=== PATIENT | female | born 1945 | race Caucasian/White ===

== ENCOUNTER 2016-06-16 10:35 | Observation (INO) ==
[2016-06-16] MEDS ORDERED: Aspirin 325 MG TABLET PO ONE (10:53)
--- NOTE | 2016-06-16 10:54 | Emergency Department Note ---
Disposition Clinical Impression: Chest pain, HTN (hypertension), HLD (hyperlipidemia), Diabetes, Frail elderly, Obesity, CAD (coronary artery disease), Renal insufficiency, UTI (urinary tract infection), Leukocytosis, Lactic acidosis, Abnormal EKG, Cerebrovascular disease , TIA (transient ischemic attack) Disposition: Admitted As Inpatient Referrals: NO,PCP [Non-Partnered Physician] - Forms: ED Satisfaction Letter General Adult HPI - General Chief complaint: ED Shortness of Breath/Dyspnea Stated complaint: SOB Time Seen by Provider: 06/16/16 10:43 Source: patient, family Limitations: no limitations - History of Present Illness HPI Narrative: 70-year-old female with a history of diabetes, hypertension, and hypercholesterolemia status post recent temporal artery biopsy reports to the emergency department complaining of chest pain and shortness of breath. The patient reports exertional chest pressure and dyspnea which began last evening. The pain did not radiate into the jaws or left arm she felt a heavy sensation in her chest. The patient has had no cough or runny nose or pain or sore throat , coughing up blood leg swelling or pain or syncope. No history of DVT PE or cancer. She had remote cardiac testing which revealed no stentable lesions, the patient does have a history of coronary artery disease per the chart. That cardiac testing was reported to be several years ago. The patient is not anticoagulated currently. The patient also reports last evening her right hand and right foot "adelfo up" indicating weakness which resolved. The patient has no trouble moving the arms or legs currently no weakness or numbness in arms or legs currently there is no history of difficulty speaking hearing or acute headache. No history of fever. There is no history of abdominal pain vomiting or diarrhea. No falls or injuries. Her main concern is chest pain and shortness of breath. Secondary concerns were brought forward by her sister regarding her hand and foot, the patient does corroborate that history however. There is been no coldness or blueness in the arms or legs. Pain Scale: 0 - Related Data Home Medications Medication Instructions Recorded Confirmed Amlodipine [Norvasc] 10 mg PO DAILY 05/18/15 06/06/16 Ascorbic Acid [Vitamin C] 1,000 mg PO DAILY 05/18/15 06/06/16 Enalapril Maleate [Vasotec] 40 mg PO DAILY 05/18/15 06/06/16 Gabapentin [Neurontin] 800 mg PO TID 05/18/15 06/06/16 Liraglutide [Victoza 2-Jere] 0.6 mg SQ DAILY 05/18/15 06/06/16 Metoprolol [Lopressor] 100 mg PO BID 05/18/15 06/06/16 Simvastatin [Zocor] 40 mg PO DAILY 05/18/15 06/06/16 Albuterol Neb [Proventil Neb] 2.5 mg IH TID PRN 06/06/16 06/06/16 Albuterol Sulfate [Albuterol 2 puff IH Q6HR PRN 06/06/16 06/06/16 Inhaler] Calcium Carbonate [Tums] 1,000 mg PO Q4HR PRN 06/06/16 06/06/16 Cholecalciferol (D-3) [Vitamin D] 2,000 unit PO DAILY 06/06/16 06/06/16 Cyanocobalamin (Vitamin B-12) 1,000 mcg PO DAILY 06/06/16 06/06/16 [Vitamin B12] Cyclobenzaprine [Flexeril] 10 mg PO HS PRN 06/06/16 06/06/16 Ferrous Sulfate [Iron] 325 mg PO DAILY 06/06/16 06/06/16 Hydrochlorothiazide 25 mg PO DAILY 06/06/16 06/06/16 Krill/Om3/Dha/Epa/Om6/Lip/Astx 1,500 mg PO DAILY 06/06/16 06/06/16 [Krill Oil 1,500 mg Softgel] Metformin [Glucophage] 500 mg PO DAILY 06/06/16 06/06/16 Montelukast [Singulair] 10 mg PO DAILY 06/06/16 06/06/16 Multivitamin [One Daily Essential] 1 tab PO DAILY 06/06/16 06/06/16 PredniSONE 20 mg PO DAILY 06/06/16 06/06/16 Trazodone HCl 100 mg PO HS 06/06/16 06/06/16 Allergies Allergy/AdvReac Type Severity Reaction Status Date / Time No Known Allergies Allergy Verified 03/23/16 10:46 All systems ED: reviewed and negative except as stated. Past Medical History - Past Medical History Medical history: Reports: arthritis, coronary artery disease, diabetes, hyperlipidemia, hypertension Surgical history: Reports: appendectomy, hysterectomy Psychiatric history: Reports: depression - Social History Smoking Status: Former smoker Smokeless Tobacco Status: No Alcohol use: Reports: none Drug use: Reports: none Physical Exam - General Limitations: no limitations General appearance: alert, in no apparent distress - Head Head exam: atraumatic, normocephalic, normal inspection - Eye Eye exam: Present: normal appearance, PERRL, EOMI - ENT ENT exam: normal exam, normal oropharynx, mucous membranes moist, TM's normal bilaterally, normal external ear exam - Neck Neck exam: Present: normal inspection, full ROM, trachea midline. Absent: meningismus - Chest Chest inspection: Present: symmetric chest wall rise. Absent: tenderness - Respiratory Respiratory exam: Present: normal lung sounds bilaterally. Absent: respiratory distress - Cardiovascular Cardiovascular exam: Present: regular rate, normal rhythm, normal heart sounds - Abdominal Exam Abdominal exam: Present: soft, Non-Tender, normal bowel sounds. Absent: tenderness, distention, guarding, rebound, rigidity, pulsatile mass - Extremities Exam Extremities exam: Present: normal inspection, full ROM, normal capillary refill. Absent: tenderness, pedal edema, joint swelling, calf tenderness - Expanded Lower Extremity Exam Lower leg exam: Absent: Homans' sign Neurovascular/Tendon exam: Present: normal capillary refill. Absent: pulse deficit, motor deficit, sensory deficit, tendon deficit, extremity cold to touch , pallor - Back Exam Back exam: Present: normal inspection, full ROM. Absent: tenderness, CVA tenderness (R), vertebral tenderness - Neurological Exam Neurological exam: Present: alert, oriented X3, CN II-XII intact. Absent: motor sensory deficit - Psychiatric Psychiatric exam: Present: normal affect, normal mood - Skin Skin exam: Present: warm, dry, intact, normal color. Absent: rash, cyanosis, diaphoresis, erythema, pallor, mottled Course Vital Signs Temperature 97.8 F 06/16/16 10:37 Pulse Rate 75 06/16/16 10:37 Respiratory Rate 18 06/16/16 10:37 Blood Pressure 145/83 06/16/16 10:37 O2 Sat by Pulse Oximetry 99 06/16/16 10:37 Temperature 97.8 F 06/16/16 10:37 Pulse Rate 71 06/16/16 12:52 Respiratory Rate 18 06/16/16 12:52 Blood Pressure 141/78 06/16/16 12:52 O2 Sat by Pulse Oximetry 96 06/16/16 12:52 Oxygen Delivery Oxygen Delivery Room Air Medical Decision Making - [facility] Narrative Medical decision making narrative: The patient is elderly, she has a history of hypertension, diabetes, and hypercholesterolemia and is experiencing exertional chest pain and dyspnea. A stye in her risk factors for acute coronary syndrome, vertebral vascular disease , associated UTI, apparently lactic acidosis and leukocytosis, and what sounds like transient neurologic symptoms on the right side, I thought it would be appropriate to admit the patient to hospital. The patient is not tachycardic or febrile. She does not meet sepsis criteria directly. Her lactic acidosis may be secondary to her diabetic medications. IV fluids and antibiotics were given. I discussed the case with the hospitalist on-call who has accepted the patient to their care. - Lab Data Lab results reviewed: Yes I reviewed the patient's lab results. Result diagrams: 06/16/16 11:01 06/16/16 11:01 Lab Results 06/16/16 06/16/16 06/16/16 Range/Units 11:01 11:01 11:01 WBC 19.3 H (4.3-11.1) K/mcL RBC 4.16 (3.82-4.97) M/mcL Hgb 12.3 (11.5-15.4) g/dL Hct 37.3 (35.3-44.9) % MCV 89.7 (83.0-100.0) fL MCH 29.6 (28.0-33.3) pg MCHC 33.0 (31.6-35.5) g/dL RDW 13.2 (11.5-14.5) % Plt Count 182 (140-400) K/mcL MPV 10.7 (9.4-12.4) fL Immature Gran % 0.8 (0-4) % Seg Neutrophils % 70.5 % Lymphocytes % 22.7 % Monocytes % 5.3 % Eosinophils % 0.5 % Basophils % 0.2 % Neutrophils # 13.6 H (1.6-8.9) K/mcL Lymphocytes # 4.4 (0.6-4.6) K/mcL Monocytes # 1.0 (0.0-1.3) K/mcL Eosinophils # 0.1 (0.0-0.6) K/mcL Basophils # 0.0 (0.0-0.2) K/mcL PT 10.9 (9.4-12.1) Seconds INR 1.0 APTT 20.5 L (26.0-36.0) Seconds Sodium 137 (136-145) mEq/L Potassium 4.2 (3.5-4.5) mEq/L Chloride 105 (98-109) mEq/L Carbon Dioxide 23 (19-29) mEq/L BUN 32 H (7-20) mg/dL Creatinine 1.19 H (0.57-1.11) mg/dL Est GFR ( Amer) 54 L (> 60) Est GFR (Non-Af Amer) 45 L (> 60) BUN/Creatinine Ratio 27 H (6-26) Glucose 243 H (70-99) mg/dL Calculated Osmolality 299 (280-300) Lactic Acid (0.5-2.2) mmol/L Calcium 9.3 (8.6-10.8) mg/dL Total Bilirubin 0.5 (0.2-1.2) mg/dL Direct Bilirubin 0.1 (0.0-0.5) mg/dL Indirect Bilirubin 0.4 (0.0-1.2) mg/dL AST 12 (5-34) Units/L ALT 21 (0-55) Units/L Alkaline Phosphatase 80 (38-126) Units/L Creatine Kinase 28 L (29-168) Units/L Troponin I (0-0.03) ng/mL C-Reactive Protein 0 (Less than 5) mg/L B-Natriuretic Peptide (0-100) pg/mL Serum Total Protein 6.7 (6.0-8.3) g/dL Albumin 3.3 L (3.5-5.0) g/dL Globulin 3.4 (2.4-3.5) g/dL Albumin/Globulin Ratio 1.0 L (1.1-2.2) Urine Color (Yellow) Urine Clarity (Clear) Urine pH (5.0-8.0) pH Units Ur Specific [place] (1.010-1.025) Urine Protein (Neg-Trace) mg/dL Urine Glucose (UA) (Normal) mg/dL Urine Ketones (Negative) mg/dL Urine Blood (Negative) Urine Nitrite (Negative) Urine Bilirubin (Negative) Urine Urobilinogen (Normal) mg/dL Ur Leukocyte Esterase (Negative) Urine Microscopic RBC (0-3) per hpf Urine Microscopic WBC (0-3) per hpf Ur Squamous Epith Cells (None-Few) per lpf Urine Bacteria (None-Few) per hpf Hyaline Casts (None-Few) per lpf Ur Culture Indicated? (NO) 06/16/16 06/16/16 06/16/16 Range/Units 11:01 11:01 11:01 WBC (4.3-11.1) K/mcL RBC (3.82-4.97) M/mcL Hgb (11.5-15.4) g/dL Hct (35.3-44.9) % MCV (83.0-100.0) fL MCH (28.0-33.3) pg MCHC (31.6-35.5) g/dL RDW (11.5-14.5) % Plt Count (140-400) K/mcL MPV (9.4-12.4) fL Immature Gran % (0-4) % Seg Neutrophils % % Lymphocytes % % Monocytes % % Eosinophils % % Basophils % % Neutrophils # (1.6-8.9) K/mcL Lymphocytes # (0.6-4.6) K/mcL Monocytes # (0.0-1.3) K/mcL Eosinophils # (0.0-0.6) K/mcL Basophils # (0.0-0.2) K/mcL PT (9.4-12.1) Seconds INR APTT (26.0-36.0) Seconds Sodium (136-145) mEq/L Potassium (3.5-4.5) mEq/L Chloride (98-109) mEq/L Carbon Dioxide (19-29) mEq/L BUN (7-20) mg/dL Creatinine (0.57-1.11) mg/dL Est GFR ( Amer) (> 60) Est GFR (Non-Af Amer) (> 60) BUN/Creatinine Ratio (6-26) Glucose (70-99) mg/dL Calculated Osmolality (280-300) Lactic Acid 2.7 H (0.5-2.2) mmol/L Calcium (8.6-10.8) mg/dL Total Bilirubin (0.2-1.2) mg/dL Direct Bilirubin (0.0-0.5) mg/dL Indirect Bilirubin (0.0-1.2) mg/dL AST (5-34) Units/L ALT (0-55) Units/L Alkaline Phosphatase (38-126) Units/L Creatine Kinase (29-168) Units/L Troponin I 0.03 (0-0.03) ng/mL C-Reactive Protein (Less than 5) mg/L B-Natriuretic Peptide 294 H (0-100) pg/mL Serum Total Protein (6.0-8.3) g/dL Albumin (3.5-5.0) g/dL Globulin (2.4-3.5) g/dL Albumin/Globulin Ratio (1.1-2.2) Urine Color (Yellow) Urine Clarity (Clear) Urine pH (5.0-8.0) pH Units Ur Specific [place] (1.010-1.025) Urine Protein (Neg-Trace) mg/dL Urine Glucose (UA) (Normal) mg/dL Urine Ketones (Negative) mg/dL Urine Blood (Negative) Urine Nitrite (Negative) Urine Bilirubin (Negative) Urine Urobilinogen (Normal) mg/dL Ur Leukocyte Esterase (Negative) Urine Microscopic RBC (0-3) per hpf Urine Microscopic WBC (0-3) per hpf Ur Squamous Epith Cells (None-Few) per lpf Urine Bacteria (None-Few) per hpf Hyaline Casts (None-Few) per lpf Ur Culture Indicated? (NO) 06/16/16 Range/Units 12:28 WBC (4.3-11.1) K/mcL RBC (3.82-4.97) M/mcL Hgb (11.5-15.4) g/dL Hct (35.3-44.9) % MCV (83.0-100.0) fL MCH (28.0-33.3) pg MCHC (31.6-35.5) g/dL RDW (11.5-14.5) % Plt Count (140-400) K/mcL MPV (9.4-12.4) fL Immature Gran % (0-4) % Seg Neutrophils % % Lymphocytes % % Monocytes % % Eosinophils % % Basophils % % Neutrophils # (1.6-8.9) K/mcL Lymphocytes # (0.6-4.6) K/mcL Monocytes # (0.0-1.3) K/mcL Eosinophils # (0.0-0.6) K/mcL Basophils # (0.0-0.2) K/mcL PT (9.4-12.1) Seconds INR APTT (26.0-36.0) Seconds Sodium (136-145) mEq/L Potassium (3.5-4.5) mEq/L Chloride (98-109) mEq/L Carbon Dioxide (19-29) mEq/L BUN (7-20) mg/dL Creatinine (0.57-1.11) mg/dL Est GFR ( Amer) (> 60) Est GFR (Non-Af Amer) (> 60) BUN/Creatinine Ratio (6-26) Glucose (70-99) mg/dL Calculated Osmolality (280-300) Lactic Acid (0.5-2.2) mmol/L Calcium (8.6-10.8) mg/dL Total Bilirubin (0.2-1.2) mg/dL Direct Bilirubin (0.0-0.5) mg/dL Indirect Bilirubin (0.0-1.2) mg/dL AST (5-34) Units/L ALT (0-55) Units/L Alkaline Phosphatase (38-126) Units/L Creatine Kinase (29-168) Units/L Troponin I (0-0.03) ng/mL C-Reactive Protein (Less than 5) mg/L B-Natriuretic Peptide (0-100) pg/mL Serum Total Protein (6.0-8.3) g/dL Albumin (3.5-5.0) g/dL Globulin (2.4-3.5) g/dL Albumin/Globulin Ratio (1.1-2.2) Urine Color Yellow (Yellow) Urine Clarity Clear (Clear) Urine pH 5.5 (5.0-8.0) pH Units Ur Specific [place] 1.018 (1.010-1.025) Urine Protein Negative (Neg-Trace) mg/dL Urine Glucose (UA) Normal (Normal) mg/dL Urine Ketones Negative (Negative) mg/dL Urine Blood Negative (Negative) Urine Nitrite Negative (Negative) Urine Bilirubin Negative (Negative) Urine Urobilinogen Normal (Normal) mg/dL Ur Leukocyte Esterase Moderate H (Negative) Urine Microscopic RBC 0-3 (0-3) per hpf Urine Microscopic WBC 15-30 H (0-3) per hpf Ur Squamous Epith Cells Many H (None-Few) per lpf Urine Bacteria None Seen (None-Few) per hpf Hyaline Casts None Seen (None-Few) per lpf Ur Culture Indicated? YES A (NO) - Radiology Data Radiology results reviewed: Yes I reviewed the patient's radiology results.
[2016-06-16 11:09] LABS: Basophils % 0.2 %; Eosinophils # 0.1 K/mcL (0.0-0.6); Eosinophils % 0.5 %; Hematocrit 37.3 % (35.3-44.9); Hemoglobin 12.3 g/dL (11.5-15.4); Immature Granulocytes % 0.8 % (0-4); Lymphocytes # 4.4 K/mcL (0.6-4.6); Lymphocytes % 22.7 %; Mean Corpuscular Hemoglobin 29.6 pg (28.0-33.3); Mean Corpuscular Volume 89.7 fL (83.0-100.0); Mean Platelet Volume 10.7 fL (9.4-12.4); Monocytes % 5.3 %; Neutrophils # 13.6 K/mcL (1.6-8.9); Platelet Count 182 K/mcL (140-400); Red Blood Count 4.16 M/mcL (3.82-4.97); Red Cell Distribution Width 13.2 % (11.5-14.5); Segmented Neutrophils % 70.5 %
[2016-06-16 11:14] LABS: Prothrombin Time 10.9 Seconds (9.4-12.1)
[2016-06-16 11:17] LABS: Activated Partial Thrombo Time 20.5 Seconds (26.0-36.0)
[2016-06-16 11:23] LABS: Albumin 3.3 g/dL (3.5-5.0); Bilirubin,Direct 0.1 mg/dL (0.0-0.5); Bilirubin,Indirect 0.4 mg/dL (0.0-1.2); Bilirubin,Total 0.5 mg/dL (0.2-1.2); Calcium 9.3 mg/dL (8.6-10.8); Globulin 3.4 g/dL (2.4-3.5); Potassium 4.2 mEq/L (3.5-4.5); Total Protein 6.7 g/dL (6.0-8.3)
[2016-06-16 12:50] LABS: Bilirubin,Urine Negative (Negative); Blood,Urine Negative (Negative); Clarity,Urine Clear (Clear); Color,Urine Yellow (Yellow); Glucose,Urine (UA) Normal (Normal); Ketones,Urine Negative (Negative); Leukocyte Esterase,Urine Moderate (Negative); Nitrite,Urine Negative (Negative); PH,Urine 5.5 pH Units (5.0-8.0); Protein,Urine Negative (Neg-Trace); Specific Gravity,Urine 1.018 (1.010-1.025); Urobilinogen,Urine Normal (Normal)
[2016-06-16] MEDS ORDERED: 0.9 % Sodium Chloride 1,000 ML IVC ONE (12:50)
[2016-06-16 12:52] LABS: Bacteria,Urine None Seen per hpf (None-Few); Hyaline Casts,Urine None Seen per lpf (None-Few); RBC,Urine 0-3 per hpf (0-3); Squamous Epithelial Cell,Urine Many per lpf (None-Few); WBC,Urine 15-30 per hpf (0-3)
[2016-06-16] MEDS ORDERED: Acetaminophen 325 MG TABLET PO PRN (15:23)
[2016-06-16] MEDS ORDERED: Naloxone 0.4 MG/ML INJ IVP PRN (15:23)
[2016-06-16] MEDS ORDERED: D5% in Water 1,000 ML IVC PRN (15:27)
[2016-06-16] MEDS ORDERED: *HR* Dextrose 50 % in Water (Syg) 50 ML SYRINGE IVP PRN (15:27)
[2016-06-16] MEDS ORDERED: Dextrose Gel 15 GM PO PRN ×2 (15:27)
[2016-06-16] MEDS: 0.9 % Sodium Chloride 1,000 ML IVC SCH (16:31)
--- NOTE | 2016-06-16 16:33 | Internal Med History&Physical ---
Date of Encounter: 06/16/16 Time of Encounter: 15:30 Assessment and Plan (1) Chest pain Current visit: Yes Status: Acute 1 patient is experiencing chest pain with associated shortness of breath. Risk factors include hypertension diabetes and obesity family history. First troponin was negative we will continue to cycle cardiac troponins 2 continue his cardiac monitoring EKG as needed 3 we will obtain cardiac echo 4 nitroglycerin as needed for chest pain, oxygen as needed to maintain SPO2 greater than 92% 5 we will make patient nothing by mouth hold beta niko for now-cardiac stress in a.m. 6 continue aspirin and statin beta niko Qualifiers: Chest pain type: unspecified Qualified Code(s): R07.9 - Chest pain, unspecified (2) CKD (chronic kidney disease), stage III Current visit: Yes Status: Acute 1 creatinine is 1.19-it has been 1.3-1.6. We will continue to monitor creatinine 2 avoid nephrotoxins 3 daily weights and monitor intake and output 4 IV fluids (3) HTN (hypertension) Current visit: Yes Status: Acute 1 we will continue with Norvasc and Lopressor dose to maintain systolic less than 140 Qualifiers: Hypertension type: essential hypertension Qualified Code(s): I10 - Essential (primary) hypertension (4) Diabetes Current visit: Yes Status: Acute 1 patient is taking metformin. As noted patient's lactate is elevated. We will discontinue metformin for now give IV fluids. We will check blood sugars before meals at bedtime and exercise guidelines as needed. 2 due to elevation of lactate and patient's CK D-therefore we stopped and will need to be discharged on different oral antidiabetic 3 diabetic diet Qualifiers: Diabetes mellitus type: type 2 Diabetes mellitus complication status: without complication Diabetes mellitus usp insulin use: with usp use Qualified Code(s): E11.9 - Type 2 diabetes mellitus without complications ; Z79.4 - retirement (current) use of insulin (5) CAD (coronary artery disease) Current visit: Yes Status: Acute 1 patient states she did have a stress test approximately 10 years ago which revealed no stainable lesions. We will continue with statin beta niko will give aspirin. 2 nitroglycerin as needed oxygen as needed for chest pain Qualifiers: Coronary Disease-Associated Artery/Lesion type: unspecified vessel or lesion type [place] vs. transplanted heart: [place] heart Associated angina: angina presence unspecified Qualified Code(s): I25.10 - Atherosclerotic heart disease of [place] coronary artery without angina pectoris (6) Lactic acidosis Current visit: Yes Status: Acute 1 patient has a lactate of 2.7. Patient is on metformin and has chronic kidney disease. We will start the metformin. Give IV fluids recheck lactate. (7) DVT prophylaxis Current visit: Yes Status: Acute 1 FRANCISCO bach Internal Medicine - H&P: HPI Chief complaint: cp Admitted From: Emergency Dept Plans for Post Hospital Care: Home History of present illness: Ms. Tucker is a 70 year old female past medical history diabetes hypertension CK D stage III hypercholesterolemia recent temporal artery biopsy 06/06/2016. According to patient she had taken a walk yesterday evening she came home and felt unusually tired and rested. After she had restedshe began to experience midsternal sharp achy9/10 pressure which was nonradiating. The pain was constant, she did experience palpitations. There were no aggravating factors. She did experience shortness of breath however no lightheadedness diaphoresis beers chills cough nausea vomiting or diarrhea. She also noted that her right hand and right foot began to draw up and felt weak and resolved after a few minutes. The chest pressure continued all night into this morning. The pain was relieved when she had taken an albuterol treatment She presented to the ER with the above complaints. According to ER records first cardiac troponin was negative EKG with no ST-T wave abnormalities. Chest x-ray with no acute process. Lab work did reveal an elevated lactate 2.7 creatinine is 1.19 white count 19.3 urinalysis today revealed moderate amount of leuk esterase. Blood cultures were obtained patient was given IV fluids and aspirin. Initiated on IV Rocephin. She was admitted for further work up evaluation. Presently patient denies any chest pain or shortness of breath. She has equal strength in all extremities and is able to move the family difficulty. Cranial nerves II through XII are intact facial noted. She is alert and oriented appropriate following simple commands. Presently she is hemodynamically stable. I did review this case with who agrees with plan. Past Med Surg Social Fam HX - Past Medical History Medical history: arthritis, coronary artery disease, diabetes, hyperlipidemia, hypertension Psychiatric history: depression - Past Surgical History Surgical History: appendectomy, hysterectomy - Social History Smoking Status: Former smoker Smokeless Tobacco Status: No Alcohol use: none Drug use: none - Family History Father Living Status: Hx Family Cardiac Disorders: Yes Brother Living Status: Still Living Hx Family Cardiac Disorders: Yes Internal Medicine - H&P: Meds Amlodipine [Norvasc] 10 mg PO DAILY 05/18/15 [History] Ascorbic Acid [Vitamin C] 1,000 mg PO DAILY 05/18/15 [History] Enalapril Maleate [Vasotec] 40 mg PO DAILY 05/18/15 [History] Gabapentin [Neurontin] 800 mg PO TID 05/18/15 [History] Liraglutide [Victoza 2-Jere] 0.6 mg SQ DAILY 05/18/15 [History] Metoprolol [Lopressor] 100 mg PO BID 05/18/15 [History] Simvastatin [Zocor] 40 mg PO DAILY 05/18/15 [History] Albuterol Neb [Proventil Neb] 2.5 mg IH TID PRN 06/06/16 [History] Albuterol Sulfate [Albuterol Inhaler] 2 puff IH Q6HR PRN 06/06/16 [History] Calcium Carbonate [Tums] 1,000 mg PO Q4HR PRN 06/06/16 [History] Cholecalciferol (D-3) [Vitamin D] 2,000 unit PO DAILY 06/06/16 [History] Cyanocobalamin (Vitamin B-12) [Vitamin B12] 1,000 mcg PO DAILY 06/06/16 [History ] Cyclobenzaprine [Flexeril] 10 mg PO HS PRN 06/06/16 [History] Ferrous Sulfate [Iron] 325 mg PO DAILY 06/06/16 [History] Hydrochlorothiazide 25 mg PO DAILY 06/06/16 [History] Krill/Om3/Dha/Epa/Om6/Lip/Astx [Krill Oil 1,500 mg Softgel] 1,500 mg PO DAILY [History] Metformin [Glucophage] 500 mg PO DAILY 06/06/16 [History] Montelukast [Singulair] 10 mg PO DAILY 06/06/16 [History] Multivitamin [One Daily Essential] 1 tab PO DAILY 06/06/16 [History] PredniSONE 20 mg PO DAILY 06/06/16 [History] Trazodone HCl 100 mg PO HS 06/06/16 [History] Citalopram Hydrobromide [Citalopram HBr] 10 mg PO DAILY 06/16/16 [History] Duloxetine HCl [Cymbalta] 60 mg PO DAILY 06/16/16 [History] LORazepam [Ativan] 1 mg PO 06/16/16 [History] Allergies No Known Allergies Allergy (Verified 03/23/16 10:46) All Systems PM: A 10-system review of systems was performed and is negative for pertinent findings except as documented above in the HPI. - Constitutional Constitutional: fatigue, weakness, no chills, no fever(s), no night sweats - EENT Eyes: no change in vision, no discharge, no pain, no photophobia - Cardiovascular Cardiovascular ROS IM: chest pain, no diaphoresis, no dyspnea, no lightheadedness, no palpitations, no syncope - Respiratory Respiratory: dyspnea, no cough, no wheezing, no excessive phlegm production - Gastrointestinal Gastrointestinal: no abdominal pain, no diarrhea, no hematemesis, no hematochezia, no melena, no nausea, no vomiting - Genitourinary Genitourinary: no change in urinary stream, no dysuria, no flank pain, no hematuria - Musculoskeletal Musculoskeletal ROS IM: no numbness, no tingling - Integumentary Integumentary IM: no rash, no unusual bruising - Neurological Neurological ROS: numbness, weakness, no confusion, no convulsions, no focal weakness, no tingling, no tremor(s) - Constitutional Vitals: Temp Pulse Resp BP Pulse Ox 97.8 F 71 18 138/74 96 06/16/16 10:37 06/16/16 12:52 06/16/16 16:10 06/16/16 16:10 06/16/16 12:52 General appearance: Present: A&O X 3, answers questions appropriately - Head Head exam: Present: atraumatic, normocephalic - Eye Eye exam: Present: PERRL, conjuntiva pink, sclera anicteric Pupils: Present: PERRL - Respiratory Respiratory exam: Present: CTAB. Absent: accessory muscle use, rales, rhonchi, wheezes - Cardiovascular Cardiovascular exam: Present: RRR, +S1, +S2. Absent: diastolic murmur, gallop, rubs, systolic murmur - GI/Abdominal GI/Abdominal exam: Present: normal bowel sounds, soft, no peritoneal signs. Absent: distended, tenderness - Extremities Exam Extremities exam: Present: warm, radial pulses palpable and symetrical. Absent : calf tenderness, cyanotic, pedal edema - Neurological Exam Neurological exam: Present: CN II-XII intact, oriented X3, no focal deficits. Absent: pronater drift, facial droop, speech deficit - Skin Skin exam: Present: dry, intact Internal Med - H&P Results - Labs CBC & Chem 7: 06/16/16 11:01 06/16/16 11:01 - EKG Data EKG shows normal: sinus rhythm - EKG Data Prior EKG available for review: yes When compared to previous EKG: there is no significant change - Diagnostic Studies Other Images Additional comments: Chest X-Ray 06/16/16 10:52 IMPRESSION: No acute cardiopulmonary findings. D/ / Tiffany Matson MD / Tiffany Matson MD Interpreting Provider: Tiffany Matson MD Head CT 06/16/16 11:04 IMPRESSION: Mild chronic small vessel ischemic changes. Atherosclerotic calcification of the cavernous carotid arteries. No acute intracranial abnormality. D/ / 06/16/2016 12:20:10 Leda Hernandez MD / Xuan Bangura Interpreting Provider: Leda Hernandez MD
[2016-06-16] MEDS: Insulin LISPRO 300 UNITS/3 ML VIAL SQ SCH ×2 (17:37→22:26)
[2016-06-17 00:16] LABS: Basophils % 0.2 %; Eosinophils # 0.1 K/mcL (0.0-0.6); Eosinophils % 0.7 %; Immature Granulocytes % 0.6 % (0-4); Lymphocytes # 4.3 K/mcL (0.6-4.6); Lymphocytes % 28.2 %; Mean Corpuscular HGB Conc 33.4 g/dL (31.6-35.5); Mean Corpuscular Hemoglobin 30.1 pg (28.0-33.3); Mean Corpuscular Volume 89.9 fL (83.0-100.0); Mean Platelet Volume 10.5 fL (9.4-12.4); Monocytes # 0.9 K/mcL (0.0-1.3); Monocytes % 6.1 %; Neutrophils # 9.7 K/mcL (1.6-8.9); Platelet Count 152 K/mcL (140-400); Red Blood Count 3.56 M/mcL (3.82-4.97); Red Cell Distribution Width 13.1 % (11.5-14.5); Segmented Neutrophils % 64.2 %
[2016-06-17 00:18] LABS: Hemoglobin 10.7 g/dL (11.5-15.4)
[2016-06-17 00:29] LABS: BUN/Creatinine Ratio 29 (6-26); Blood Urea Nitrogen 31 mg/dL (7-20); Calcium 8.8 mg/dL (8.6-10.8); Carbon Dioxide 23 mEq/L (19-29); Chloride 109 mEq/L (98-109); Chol/HDL Ratio 3.3 (0-4.9); Cholesterol 157 mg/dL (< 200); Glucose 146 mg/dL (70-99); HDL Cholesterol 47 mg/dL (40-59); LDL Cholesterol,Calculated 77 mg/dL (0-99); Osmolality,Calculated 297 (280-300); Potassium 4.1 mEq/L (3.5-4.5); Sodium 139 mEq/L (136-145); Triglycerides 166 mg/dL (< 150); eGFR For African Americans > 60 (> 60); eGFR For Non-African Americans 51 (> 60)
[2016-06-17] MEDS: 0.9 % Sodium Chloride 1,000 ML IVC SCH ×2 (04:29→21:19)
--- NOTE | 2016-06-17 08:49 | Internal Med Progress Note ---
Date of Encounter: 06/17/16 Time of Encounter: 08:49 - Assessment and plan (1) Chest pain Current Visit: Yes Status: Acute Assessment and plan: Follow reports of ECHO and stress test Negative EKG and no troponn elevation NTG prn Qualifiers: Chest pain type: unspecified Qualified Code(s): R07.9 - Chest pain, unspecified (2) HTN (hypertension) Current Visit: Yes Status: Chronic Assessment and plan: Controlled, continue home meds Qualifiers: Hypertension type: essential hypertension Qualified Code(s): I10 - Essential (primary) hypertension (3) HLD (hyperlipidemia) Current Visit: Yes Status: Chronic Assessment and plan: Stable, continue home meds Qualifiers: Hyperlipidemia type: unspecified Qualified Code(s): E78.5 - Hyperlipidemia , unspecified (4) Diabetes Current Visit: Yes Status: Chronic Assessment and plan: Controlled Continue sliding scale and hold metformin FS ACHS ADA diet Qualifiers: Diabetes mellitus type: type 2 Diabetes mellitus complication status: without complication Diabetes mellitus assisted insulin use: with assisted use Qualified Code(s): E11.9 - Type 2 diabetes mellitus without complications ; Z79.4 - residential (current) use of insulin (5) CAD (coronary artery disease) Current Visit: Yes Status: Chronic Assessment and plan: Chronic, now with angina Continue home meds Qualifiers: Coronary Disease-Associated Artery/Lesion type: unspecified vessel or lesion type [place] vs. transplanted heart: [place] heart Associated angina: angina presence unspecified Qualified Code(s): I25.10 - Atherosclerotic heart disease of [place] coronary artery without angina pectoris (6) Leukocytosis Current Visit: Yes Status: Acute Assessment and plan: Possibly secondary to UTI, however, patient has been on steroids for >2weeks for suspected temporal arteritis Continue to monitor Steroid taper Qualifiers: Leukocytosis type: unspecified Qualified Code(s): D72.829 - Elevated white blood cell count, unspecified (7) Lactic acidosis Current Visit: Yes Status: Acute Assessment and plan: Resolved now, lactate this morning is WNL Secondary to Metformin use No hypotension, no abdominal symptoms No evidence of hypoperfusion, LFT WNL Encourage liberal fluid intake (8) CKD (chronic kidney disease), stage III Current Visit: Yes Status: Chronic Assessment and plan: Chronic stable (9) DVT prophylaxis Current Visit: Yes Status: Acute Assessment and plan: Heparin SQ (10) UTI (urinary tract infection) Current Visit: Yes Status: Acute Assessment and plan: Continue Rocephin Follow urine culture Qualifiers: Urinary tract infection type: acute cystitis Hematuria presence: without hematuria Qualified Code(s): N30.00 - Acute cystitis without hematuria (11) Weakness Current Visit: Yes Status: Acute Assessment and plan: NOn-specific, worse RUE/RLE, Head CT normal Patient's gait is normal Possibly from steroids PT/OT eval - Subjective Interval history: Seen at bedside with sister she had just returned from stress test She has not had any more chest pain Temporal artery biopsy from 06/07 is negative Will continue to taper steroids She is otherwise stable - Constitutional Vitals: Temp Pulse Resp BP Pulse Ox 97.8 F 90 16 175/86 97 06/17/16 08:23 06/17/16 08:23 06/17/16 08:23 06/17/16 08:23 06/17/16 08:23 General appearance: Present: A&O X 3, pleasant, no acute distress, answers questions appropriately - Head Head exam: Present: atraumatic, normocephalic - Eye Eye exam: Present: PERRL, conjuntiva pink, sclera anicteric Pupils: Present: PERRL - Neck Neck exam general surgery: Present: supple, trachea midline. Absent: lymphadenopathy - Respiratory Respiratory exam: Present: CTAB. Absent: accessory muscle use, rales, rhonchi, wheezes - Cardiovascular Cardiovascular exam: Present: RRR, +S1, +S2. Absent: diastolic murmur, gallop, rubs, systolic murmur - GI/Abdominal GI/Abdominal exam: Present: normal bowel sounds, soft, no peritoneal signs. Absent: distended, tenderness - Extremities Exam Extremities exam: Present: warm, radial pulses palpable and symetrical. Absent : calf tenderness, cyanotic, pedal edema - Neurological Exam Neurological exam: Present: alert, CN II-XII intact, oriented X3, no focal deficits. Absent: pronater drift, facial droop, speech deficit - Skin Skin exam: Present: dry, intact Internal Medicine: Result - Labs CBC & Chem 7: 06/17/16 00:03 06/17/16 00:03 Labs: Short CBC 06/17/16 Range/Units 00:03 WBC 15.2 H (4.3-11.1) K/mcL Hgb 10.7 L D (11.5-15.4) g/dL Hct 32.0 L (35.3-44.9) % Plt Count 152 (140-400) K/mcL Neutrophils # 9.7 H (1.6-8.9) K/mcL BMP 06/17/16 00:03 Sodium 139 Potassium 4.1 Chloride 109 Carbon Dioxide 23 BUN 31 H Creatinine 1.06 Glucose 146 H Calcium 8.8 Cardiac Enzymes 06/16/16 06/17/16 Range/Units 17:42 00:03 Troponin I 0.02 0.02 (0-0.03) ng/mL - ABG Interpretation ABG results: PT/INR, D-dimer PT 10.9 Seconds (9.4-12.1) 06/16/16 11:01 Consult Discharge Plan - Plan Referrals: Donya Reid [Primary Care Provider] -
[2016-06-17] MEDS ORDERED: Regadenoson 0.4 MG/5 ML SYRINGE IVP ONE (09:36)
[2016-06-17] MEDS: Aspirin Enteric Coated 81 MG Tablet PO SCH (10:52)
[2016-06-17] MEDS: predniSONE 10 MG TABLET PO SCH ×2 (10:52→17:53)
[2016-06-17] MEDS: Insulin LISPRO 300 UNITS/3 ML VIAL SQ SCH ×5 (11:40→21:14)
--- NOTE | 2016-06-17 12:02 | Nuclear Medicine Stress Report ---
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 Gated EF > 70%. Perfusion imaging was negative for ischemia or infarct. History: Hypertension Diabetes Hypercholesteremia Stress Test Summary: Stress Test Type: Pharmacologic Regadenoson 0.4mg/5ml given IV Baseline Information: Initial Heart Rate: 98 Blood Pressure: 172/84 Stress Information: Test Terminated Due to (primary): As per protocol Maximum Blood Pressure: 164/48 Maximum Heart Rate: 130 Percent Maximum Heart Rate Achieved: 87 Double Product: [id number] Symptoms: Shortness of breath Nuclear Summary: SPECT myocardial perfusion imaging using Tc99m Sestamibi given intravenously was performed at rest and following cardiac stress testing. The resting images were obtained following initial dose of 11 mCi. Following stress an additional dose of 32.3 mCi was given at peak exercise or 30 seconds post regadenoson infusion. Medication Given: Time Medication Dose Units Route Findings: Stress Note * Resting ECG demonstrated normal sinus rhythm. * No baseline arrhythmias were noted. * Pharmacologic stress ECG is negative for ischemia at level of heart rate achieved. * No arrhythmias were noted during stress. * Patient had no chest pain during stress. * Normal hemodynamic responses to pharmacologic stress. Study Quality * Study quality is average. Gated EF > 70% * Gated EF > 70%. Left Ventricle * The left ventricle is not dilated. LVEDV = 58 mL. NORMALS * Normal wall motion. * Normal Segmental Perfusion in rest. * Normal segmental perfusion in stress. TID * No evidence of transient ischemic dilatation. TID ratio = 1.04. Lung Uptake * There is no evidence of increase lung uptake. Updated by Darian Yoder DO, FACJame, AMANDA, MARGRET on 06/17/2016 11:52:34 AM electronically signed on 06/17/2016 11:55:51 AM with status of Final
[2016-06-17] MEDS: *HR* Heparin 5,000 UNIT/ML VIAL SQ SCH ×2 (13:31→21:16)
--- NOTE | 2016-06-17 16:46 | ECHO - Doppler Report ---
Echocardiogram Name: Rosanna Tucker Date of Study: 06/17/2016 Date: 1945 Ht: 64.0 in Medical Record#: [id number] Age: 70 Wt: 175.0 lb Gender: Female BSA: 1.85 Order #: [id number] Location: [facility] Room #: [id number] Reading Physician: Darian Yoder DO, FACC, AMANDA [employer] Stenographer: Sharonda Mckeon RVT, RD Ordering Physician: Deirdre Grace CNP Primary Physician: Donya Reid CNP Indications: Chest pain Impressions: LVEF 60-65%. Normal LV chamber size and function. Mild concentric left ventricular hypertrophy. Mild left ventricular diastolic dysfunction. Normal right ventricular structure and function. No evidence of pulmonary hypertension. No significant valvular dysfunction. Left Ventricular Wall Motion: Rest Echo Findings All wall segments showed normal motion. Findings: Study Quality * Technically adequate exam. ECG Findings * Normal sinus rhythm. Left Ventricle * LVEF 60-65%. * Normal LV chamber size and function. * Mild concentric left ventricular hypertrophy. * Mild left ventricular diastolic dysfunction. Right Ventricle * Normal right ventricular structure and function. Left Atrium * Mildly dilated left atrium. Right Atrium * Normal right atrial size. Interatrial Septum * No evidence of PFO by color Doppler. Aortic Valve * Trileaflet aortic valve with normal function. * No aortic regurgitation. * No aortic stenosis. Mitral Valve * Mild mitral annular calcification * No mitral regurgitation. * No mitral stenosis. Tricuspid Valve * Normal tricuspid valve structure and function. * Trace tricuspid regurgitation. * No evidence of pulmonary hypertension. Pulmonic Valve * Pulmonic valve is not well visualized. Aorta * Normally sized aortic root. Pericardium * The pericardium appears normal. IVC * Normal IVC dimensions and inspiratory collapse. Pulmonary Artery * Normal visualized portions of the main pulmonary artery. History Hypertension Diabetes Hypercholesteremia Measurements: BP: 184/ 70 2D Normal Values RVIDd: 3.20 cm <2.7 cm IVSd: 1.20 cm 0.6 - 1.0 cm LVIDd: 3.80 cm 3.7 - 5.6 cm LVPWd: 1.20 cm 0.6 - 1.1 cm LVIDs: 2.90 cm 1.5 - 3.6 cm AO: 3.00 cm < 4.0 cm LA: 3.00 cm 2.0 - 4.0cm %FS: 23.70 cm >25 % LA volume: 26 Mitral Valve Dec Time:268.00 msec Peak E:.71 m/sec Peak A:.92 m/sec E/A Ratio:0.8 Peak E' Lat Rick:7.51 cm/s Peak E' Med Rick:6.73 cm/s E/E' Lat Ratio:9.5 E/E' Med Ratio:10.6 Tricuspid Valve TV Regurg Peak Grad: 28.00mmHg TV Regurg Peak Rick: 2.64m/sec Updated by Darian Yoder DO, ULICES, AMANDA, MARGRET on 06/17/2016 4:40:34 PM electronically signed on 06/17/2016 4:41:20 PM with status of Final Wall Motion [place]: 1=Normal, 2=Hypokinesis, 3=Akinesis, 4=Dyskinesis, 5=Aneurysmal, 6=Hyperkinetic, X=Not Visualized (Blank)=Missing
--- NOTE | 2016-06-17 17:37 | Electrocardiograph Report ---
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
[2016-06-17] MEDS: amLODIPine 5 MG TABLET PO SCH (18:39)
[2016-06-17] MEDS: *HR* LORazepam 1 MG TABLET PO SCH (19:04)
[2016-06-17] MEDS ORDERED: traZODone 50 MG TABLET PO SCH (21:00)
[2016-06-17] MEDS: Metoprolol 100 MG TABLET PO SCH (21:16)
[2016-06-18] MEDS: *HR* Heparin 5,000 UNIT/ML VIAL SQ SCH (05:37)
[2016-06-18] MEDS ORDERED: Insulin LISPRO 300 UNITS/3 ML VIAL SQ SCH ×2 (07:45→07:46)
[2016-06-18] MEDS: Aspirin Enteric Coated 81 MG Tablet PO SCH (08:24)
[2016-06-18] MEDS: amLODIPine 5 MG TABLET PO SCH (08:24)
[2016-06-18] MEDS: *HR* LORazepam 1 MG TABLET PO SCH (08:24)
[2016-06-18] MEDS: Metoprolol 100 MG TABLET PO SCH (08:25)
[2016-06-18] MEDS: predniSONE 10 MG TABLET PO SCH (08:25)
[2016-06-18] MEDS ORDERED: Cholecalciferol (D-3) 1,000 UNIT TABLET PO SCH (09:00)
[2016-06-18] MEDS ORDERED: Ascorbic Acid 500 MG TABLET PO SCH (09:00)
[2016-06-18] MEDS ORDERED: Multivit/Ca/Min/Fe/FA 1 TAB TABLET PO SCH (09:00)
[2016-06-18] MEDS ORDERED: Cyanocobalamin (B-12) 1,000 MCG TABLET PO SCH (09:00)
[2016-06-18] MEDS ORDERED: Lisinopril 20 MG TABLET PO SCH (09:00)
[2016-06-18] MEDS ORDERED: hydroCHLOROthiazide 25 MG TABLET PO SCH (09:00)
--- NOTE | 2016-06-18 09:01 | Discharge Summary ---
Date of Encounter: 06/18/16 Time of Encounter: 09:00 - Discharge Diagnosis (1) Chest pain Priority: Primary Status: Acute Qualifiers: Chest pain type: precordial pain Qualified Code(s): R07.2 - Precordial pain (2) HTN (hypertension) Priority: Secondary Status: Chronic Qualifiers: Hypertension type: essential hypertension Qualified Code(s): I10 - Essential (primary) hypertension (3) HLD (hyperlipidemia) Priority: Secondary Status: Chronic Qualifiers: Hyperlipidemia type: unspecified Qualified Code(s): E78.5 - Hyperlipidemia , unspecified (4) Diabetes Priority: Secondary Status: Chronic Qualifiers: Diabetes mellitus type: type 2 Diabetes mellitus complication status: without complication Diabetes mellitus care home insulin use: with data entry coordinator use Qualified Code(s): E11.9 - Type 2 diabetes mellitus without complications ; 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 transplanted heart: [place] heart Associated angina: angina presence unspecified Qualified Code(s): I25.10 - Atherosclerotic heart disease of [place] coronary artery without angina pectoris (6) UTI (urinary tract infection) Priority: Secondary Status: Acute Qualifiers: Urinary tract infection type: acute cystitis Hematuria presence: without hematuria Qualified Code(s): N30.00 - Acute cystitis without hematuria (7) Leukocytosis Priority: Secondary Status: Acute Qualifiers: Leukocytosis type: unspecified Qualified Code(s): D72.829 - Elevated white blood cell count, unspecified (8) Lactic acidosis Priority: Secondary Status: Acute (9) CKD (chronic kidney disease), stage III Priority: Secondary Status: Chronic (10) DVT prophylaxis Priority: Secondary Status: Acute (11) Weakness Priority: Secondary Status: Acute (12) Anemia Priority: Secondary Status: Acute Qualifiers: Anemia type: unspecified type Qualified Code(s): D64.9 - Anemia, unspecified - Discharge Medications Prescriptions: Amoxicillin/Clavulanate [Augmentin] 500 mg PO BIDWM #14 tablet Aspirin Enteric Coated [Aspirin EC] 81 mg PO DAILY #30 tablet. Ferrous Sulfate 325 mg PO DAILY #30 tablet Home Medications: Amlodipine [Norvasc] 10 mg PO DAILY 05/18/15 [History] Ascorbic Acid [Vitamin C] 1,000 mg PO DAILY 05/18/15 [History] Enalapril Maleate [Vasotec] 40 mg PO DAILY 05/18/15 [History] Gabapentin [Neurontin] 800 mg PO TID PRN 05/18/15 [History] Liraglutide [Victoza 2-Jere] 1.8 mg SQ DAILY 05/18/15 [History] Metoprolol [Lopressor] 100 mg PO BID 05/18/15 [History] Simvastatin [Zocor] 40 mg PO HS 05/18/15 [History] Albuterol Neb [Proventil Neb] 2.5 mg IH TID PRN 06/06/16 [History] Albuterol Sulfate [Albuterol Inhaler] 2 puff IH Q6HR PRN 06/06/16 [History] Calcium Carbonate [Tums] 1,000 mg PO Q4HR PRN 06/06/16 [History] Cholecalciferol (D-3) [Vitamin D] 2,000 unit PO DAILY 06/06/16 [History] Cyanocobalamin (Vitamin B-12) [Vitamin B12] 1,000 mcg PO DAILY 06/06/16 [History ] Cyclobenzaprine [Flexeril] 10 mg PO HS PRN 06/06/16 [History] Ferrous Sulfate [Iron] 325 mg PO DAILY 06/06/16 [History] Hydrochlorothiazide 25 mg PO DAILY 06/06/16 [History] Krill/Om3/Dha/Epa/Om6/Lip/Astx [Krill Oil 1,500 mg Softgel] 1,500 mg PO DAILY [History] Metformin [Glucophage] 500 mg PO DAILY 06/06/16 [History] Montelukast [Singulair] 10 mg PO DAILY 06/06/16 [History] Multivitamin [One Daily Essential] 1 tab PO DAILY 06/06/16 [History] PredniSONE 10 mg PO BID 06/06/16 [History] Trazodone HCl 100 mg PO HS 06/06/16 [History] Citalopram Hydrobromide [Citalopram HBr] 10 mg PO DAILY 06/16/16 [History] Duloxetine HCl [Cymbalta] 60 mg PO DAILY 06/16/16 [History] LORazepam [Ativan] 1 mg PO BID 06/16/16 [History] Amoxicillin/Clavulanate [Augmentin] 500 mg PO BIDWM #14 tablet 06/18/16 [Rx] Aspirin Enteric Coated [Aspirin EC] 81 mg PO DAILY #30 tablet. 06/18/16 [Rx] Ferrous Sulfate 325 mg PO DAILY #30 tablet 06/18/16 [Rx] Allergies/Adverse Reactions: Allergies No Known Allergies Allergy (Verified 03/23/16 10:46) Procedures/tests Complete & Pending: Procedures Performed prior 72 hours Category Date Time Status NM cr perf SPECT multi [NM] Routine Exams 06/17/16 07:31 Taken EV echocardiogram Routine Y 06/17/16 07:00 Completed SP pharm nuclear stress Stat Y 06/17/16 07:55 Completed - Notes to Outpatient Provider Consider colonoscopy as outpatient to diagnose cause of anemia. Date of admission: 06/16/16 13:59 Primary care physician: Donya Reid Consults: 06/16/16 18:21 PT [Consult to Physical Therapy] [CONS] Stat Comment: Evaluate, develop and implement POC 06/16/16 18:22 OT [Consult to Occupational Therapy] [CONS] Stat Comment: Evaluate, develop and implement POC Discharging clinician: Rita Ohara Anticipated date of discharge: 06/18/16 - Patient Status Disposition: Home, Self-Care Condition: Good Functional capacity at discharge: independent ambulation Overall status at discharge: patient is back to baseline - Discharge Instructions Instructions: Chest Pain (DC), Diabetes Mellitus Type 2 in Adults (DC) Follow Up With: Donya Reid [Primary Care Provider] - 06/27/16 12:15 pm (Please follow up as schedule...) - Diet and Activity Activity: resume usual activities as tolerated Diet: diabetic diet, low fat, low cholesterol, low salt diet Hospital course: Ms. Tucker is a 70 year old female patient who was observed in the hospital with complaints of chest pain and right upper extremity and lower extremity weakness and tingling. Her pain symptoms had resolved by the time she came to the ER. She has been on treatment for possible temporal arteritis with steroids. She underwent cardiac stress testing and also echocardiogram was did not show any signs of ST or ischemia. She is no longer having any chest pain. Her urine was suggestive of acute urinary tract infection. She was started on treatment for this with Rocephin. She will be discharged to short course of Augmentin to complete treatment course. Her culture is so far been negative. The patient's biopsy of the left temporal artery did not show any signs of arthritis. She is on 10 mg of prednisone twice daily currently and will continue to taper it down. She will follow up with vascular surgery after discharge for further management. Patient also has anemia and had an colonoscopy 2 years back with a polyp that was removed. No overt bleeding. She has been placed on iron supplements. Patient underwent CT of the head which was negative. She has been having intermittent right hand and right foot drawing up which could be related to chronic steroid use. If these symptoms do not improve, she will need further workup for this which may include no conduction testing. She will follow up with her primary care provider for further management. - Time Spent with Patient Total time spent providing and/or coordinating discharge services: Less than 30 minutes (25 min) - Constitutional Vitals: Temp Pulse Resp BP Pulse Ox 97.7 F 65 16 161/79 97 06/18/16 08:00 06/18/16 08:00 06/18/16 08:00 06/18/16 08:00 06/18/16 08:28 General appearance: Present: A&O X 3, pleasant, no acute distress, answers questions appropriately - Respiratory Respiratory exam: Present: CTAB. Absent: accessory muscle use, rales, rhonchi, wheezes - Cardiovascular Cardiovascular exam: Present: RRR, +S1, +S2. Absent: diastolic murmur, gallop, rubs, systolic murmur - Extremities Exam Extremities exam: Present: warm, radial pulses palpable and symetrical. Absent : calf tenderness, cyanotic, pedal edema - VTE Documentation of Mechanical Device: Graduated compression elastic hosiery - Attending Attestation This document has been at least partially created by [employer] recognition technology by Dr. Ohara. Errors in grammar, wording or other phrases may exist. If errors are found after the documentation is signed, they will be addressed individually in the addendum section of this document when appropriate.
[2016-06-18 11:20] VITALS: BP 161/79
== END 2016-06-18 10:45 | disposition home or self-care (01) ==
LOC: EMEROO 10:35 → 2ANU 10:35 → SUATTDRO 13:59 → 2ANU 16:32
PROVIDERS: ADMIT Nurse Practitioner Acute Care; ATTEND Internal Medicine